=== PATIENT | male | born 1985 | race American Indian/Alaskan Native ===

== ENCOUNTER 2025-05-28 14:54 | Emergency (ER) | payer MEDICAID, SELFPAY ==
[2025-05-28 14:55] VITALS: BMI 40.8
[2025-05-28 15:09] VITALS: BP 132/97; PULSE 95; RESP 18; TEMP 36.7; O2SAT 98
--- NOTE | 2025-05-28 15:24 | XR_ITS ---
Examination: Tibia-Fibula, right , 2 views Technique: Tibia-fibula AP lateral 2 views Date and time of exam: May 28, 2025 1540 hours INDICATIONS: Twisting injury to lower leg, lower leg pain. FINDINGS: No acute fracture No dislocation No foreign body IMPRESSION: No acute fracture
--- NOTE | 2025-05-28 15:24 | XR_ITS ---
EXAMINATION: Ankle, right 3 views . Technique: Ankle AP, oblique, lateral 3 views Date and time of exam: May 28, 2025 1540 hours INDICATIONS: Twisting injury to the ankle this morning ankle pain. FINDINGS: Lateral malleolar soft tissue swelling No ankle fracture or dislocation IMPRESSION: No ankle fracture
--- NOTE | 2025-05-28 15:31 | PD.EDANKLE ---
Lower Extremity Injury RME/HPI General Chief Complaint: Ankle/Foot Injury Stated Complaint: L ANKLE INJURY TODAY Time Seen by Provider: 05/28/25 15:00 Source: patient Arrival date/time: 05/28/25 14:54 39-year-old male with no known medical history presents to the emergency room with a chief complaint of tenderness and pain to his right ankle after a ground-level fall that occurred today. Mode of arrival: ambulatory Limitations: no limitations Related Data Previous Rx's ?Medication ?Instructions ?Recorded hydrocodone 7.5 mg-acetaminophen 1 tab PO QID PRN pain #12 tabs 12/07/19 325 mg tablet Allergies Allergy/AdvReac Type Severity Reaction Status Date / Time No Known Allergies Allergy Verified 05/28/25 14:55 Review of Systems Review of Systems Systems Reviewed: All systems reviewed, normal except as documented Constitutional Constitutional: Reports system reviewed and no additional complaints, except as documented, Denies fatigue, Denies fever(s), Denies headache(s) and Denies weakness Eyes Eyes: Reports system reviewed and no additional complaints, except as documented, Denies blurry vision and Denies change in vision ENT Ears, Nose, Mouth, and Throat: Reports system reviewed and no additional complaints, except as documented, Denies otalgia, Denies headache(s), Denies nasal congestion, Denies throat swelling and Denies vertigo Cardiovascular Cardiovascular: Reports system reviewed and no additional complaints, except as documented, Denies chest pain, Denies dyspnea and Denies dyspnea on exertion Respiratory Respiratory: Reports system reviewed and no additional complaints, except as documented, Denies chest congestion, Denies cough, Denies dyspnea, Denies dyspnea on exertion and Denies wheezing Gastrointestinal Gastrointestinal: Reports system reviewed and no additional complaints, except as documented, Denies abdominal pain, Denies cramping, Denies nausea and Denies vomiting Genitourinary Genitourinary: Reports system reviewed and no additional complaints, except as documented, Denies dysuria and Denies hematuria Musculoskeletal Musculoskeletal: Reports system reviewed and no additional complaints, except as documented, Reports arthralgias, Denies back pain, Reports joint swelling and Reports limited range of motion Integumentary/Breasts Skin/Breast: Reports system reviewed and no additional complaints, except as documented and Denies wounds Neurologic Neurologic: Reports system reviewed and no additional complaints, except as documented, Denies confusion, Denies headache(s), Denies lack of coordination, Denies vertigo and Denies weakness Psychiatric Psychiatric: Reports system reviewed and no additional complaints, except as documented, Denies anxiety, Denies confusion, Denies depression, Denies paranoia, Denies suicidal ideation and Denies tactile hallucinations Endocrine Endocrine: Reports system reviewed and no additional complaints, except as documented and Denies fatigue Hematologic/Lymphatic Hematologic/Lymphatic: Reports system reviewed and no additional complaints, except as documented and Denies lymphadenopathy Allergic/Immunologic Allergic/Immunologic: Reports system reviewed and no additional complaints, except as documented, Denies throat swelling, Denies urticaria and Denies wheezing Past Medical History Past Medical History CARDIAC: Negative Cardiac Disorders or Congestive Heart Failure RESPIRATORY: Positive Asthma; Negative Chronic Obstructive Pulmonary Disease (COPD) GENITOURINARY: Negative Renal Disease ENDOCRINE: Negative Diabetes Mellitus Type 1 or Diabetes Mellitus Type 2 HEMATOLOGIC: Negative Sickle Cell Disease OTHER HISTORY: Positive Hospitalization Surgical History SURGICAL: Positive Cardiac Surgery and Abdominal Surgery (splenectomy) Social History SMOKING STATUS: Former smoker SUBSTANCE USE: marijuana ED Exam General Limitations: Present no limitations General appearance: Present alert and in no apparent distress Head Head exam: Present atraumatic Eye Eye exam: Present normal appearance, PERRL and EOMI ENT ENT exam: Present normal exam, normal oropharynx and mucous membranes moist Neck Neck exam: Present normal inspection, full ROM and trachea midline Chest Chest inspection: Present normal inspection and symmetric chest wall rise Respiratory Respiratory exam: Present normal lung sounds bilaterally Cardiovascular Cardiovascular exam: Present regular rate, normal rhythm and normal heart sounds Abdominal Exam Abdominal exam: Present soft and normal bowel sounds Extremities Exam Extremities exam: Present normal inspection and full ROM Expanded Lower Extremity Exam Hip/Pelvis exam: Present normal inspection Upper leg exam: Present normal inspection Knee exam: Present normal inspection Lower leg exam: Present normal inspection Ankle exam: Present tenderness, swelling and tenderness over talofibular lig; Absent full ROM, dislocation or erythema Gait: observed and limited by pain Back Exam Back exam: Present normal inspection and full ROM Neurological Exam Neurological exam: Present alert, oriented X3 and CN II-XII intact Psychiatric Psychiatric exam: Present normal affect and normal mood Skin Skin exam: Present warm, dry, intact and normal color Course Quality Measures none Orders Category Date Time Status Crutches .NOW Care 05/28/25 16:17 Active justo wrap [Splint / Immobilizer] STAT Care 05/28/25 16:17 Active XR ankle comp RT min 3V Stat Exams 05/28/25 15:24 Completed XR tibia fibula RT 2V Stat Exams 05/28/25 15:24 Completed Vital Signs Vital signs: Vital Signs Temperature 98.1 F 05/28/25 15:09 Pulse Rate 95 05/28/25 15:09 Respiratory Rate 18 05/28/25 15:09 Blood Pressure 132/97 H 05/28/25 15:09 Pulse Oximetry (%) 98 05/28/25 15:09 Oxygen Delivery Method Room Air 05/28/25 15:09 Extremity Injury, Lower MDM Narrative MDM Narrative:: 39-year-old male with no known medical history presents to the emergency room with a chief complaint of tenderness and pain to his right ankle after a ground-level fall that occurred today. Patient is hemodynamically stable and in no apparent distress Physical examination shows tenderness and pain to the patient's right ankle. The patient is having swelling with tenderness to the tib-fib distal area as well as the ankle. Patient has limited range of motion and tenderness when taking steps. X-ray of the ankle was completed and was negative for any acute fracture or dislocation. An Justo wrap was given to the patient and crutches Patient was discharged and educated to follow-up with primary care provider in the next 24 to 48 hours and return to the emergency room for any evidence of worsening signs or symptoms Patient data External records reviewed:: [facility] previous records Clinical information provided by:: patient Social determinants that could affect healthcare access:: none Patient has the following chronic illnesses:: No chronic illness How is presenting disease/condition affected by chronic disease/condition?: no chronic disease Evaluation data The following diagnostics were reviewed and interpreted by me:: lab results and radiology exam(s) Lab and/or radiology exams considered but not ordered:: Labs and radiology exams considered and ordered Interpretation Summary: Ankle [id number]: Lateral malleolar soft tissue swelling No ankle fracture or dislocation IMPRESSION: No ankle fracture Medications / Prescriptions Medications or Prescriptions considered but not ordered:: Medication not given Medication administrations:: Medication not given Consultations Consultation(s) initiated? (list below): No Diagnosis Extremity Injury, Lower Differential Diagnosis: ankle sprain and strain and ankle fracture Most likely diagnosis given after review of the tests above:: Ankle sprain and strain Admission Indicated Admission indicated?: not indicated Admission Request Was there a request for admission?: No Disposition Plan Disposition Plan: Discharge Discharge Attestation Discharge Attestation: The patient and all family members were given an opportunity to ask questions and understood the discharge instructions. Discharge instructions specifically effects, indications for sooner follow up or return to the emergency department, and the expected course of current diagnosis. Patient condition: Stable Discharge Plan Plan Patient Disposition: HOME (Self Care) Discharge Disposition comment: Stable Prescriptions/Referrals Prescriptions/Med Rec: No Action hydrocodone-acetaminophen 7.5-325 mg tablet 1 tab PO QID MDD 4 tabs PRN (Reason: pain) Qty: 12 0RF Referrals: No Primary/Family,Physician [Primary Care Provider] - In 1 week Problem List Clinical Impression: Ankle sprain and strain Patient/Caregiver Discharge Instructions Additional Instructions: Please follow-up with your primary care provider in the next 24 to 48 hours X-ray was completed and was negative for any acute fracture or dislocation An Justo wrap was placed and crutches were given. For any evidence of worsening signs or symptoms return to the emergency room immediately Print Language: Yi Stand Alone Forms: [employer] Award Info., Work/School Release, Patient Portal Info Letter
== END 2025-05-28 17:05 | disposition home or self-care (01) ==
PROVIDERS: Emergency Provider Family Medicine
DX: S93.401A Sprain of unspecified ligament of right ankle, initial encounter (principal); W18.30XA Fall on same level, unspecified, initial encounter
CPT/HCPCS: 73590; 73610; 99283

== ENCOUNTER → 2025-06-08 | Outpatient (CLI) | payer MEDICAID, SELFPAY ==
--- NOTE | 2025-06-08 09:35 | XR_ITS ---
Examination: Lumbar spine, 5 views Technique: Lumbar spine AP, lateral, coned lateral lower lumbar spine, bilateral obliques 5 views Exam date and time: June 08, 2025 0943 hours Comparison October 31, 2022 INDICATIONS: Sciatic lumbar spine pain several years. FINDINGS: Adequate alignment lumbar vertebral bodies on the lateral view No lumbar fracture Moderate disc narrowing L5-S1 No spondylolisthesis IMPRESSION: Moderate degenerative disc disease L5-S1
== END | disposition home or self-care (01) ==
LOC: SDIM 09:26
PROVIDERS: PCP Physician Assistant; Referring Provider Physician Assistant; Visit Provider Physician Assistant
DX: M51.379 Other intervertebral disc degeneration, lumbosacral region without mention of lumbar back pain or lower extremity pain (principal)
CPT/HCPCS: 72110